=== PATIENT | female | born 1995 | race Hispanic/Latino ===

== ENCOUNTER 2021-05-14 17:08 | Emergency (ER) | payer BC ==
[~2021-05-14] VITALS: Ht 157.5 cm; Wt 63.6 kg
[~2021-05-14 17:08] MED LIST: PEPCID20 MG PO
[2021-05-14 17:13] VITALS: BP 147/98
[2021-05-14 17:28] VITALS: BP 133/92
[2021-05-14 17:30] VITALS: BP 128/82
[2021-05-14] MEDS ORDERED: VALACYCLOVIR500 MG PO (17:30)
[2021-05-14] MEDS ORDERED: GENTAMICIN SULF5 ML OU (18:39)
[2021-05-14 18:47] VITALS: BP 128/82
== END 2021-05-14 18:49 | disposition home or self-care (01) | DRG 918 ==
LOC: ED 17:08
DX: T52.0X1A Toxic effect of petroleum products, accidental (unintentional), initial encounter (principal); H10.213 Acute toxic conjunctivitis, bilateral; Y92.524 Gas station as the place of occurrence of the external cause